=== PATIENT | female | born 1990 | race Caucasian/White ===

== ENCOUNTER 2018-10-12 19:18 | Inpatient (IN) | payer MEDICARE, OTHER ==
[2018-10-12 19:48] LABS: BASO % 1.6 % (0-2.0); EOS % 0.1 % (0-4.5); HEMATOCRIT 42.5 % (32.4-45.2); HEMOGLOBIN 14.7 GM/dl (10.7-15.3); MCH 32.1 pg (25.7-33.7); MCHC 34.7 g/dl (32.0-36.0); MEAN CELL VOLUME 92.6 fl (80-96); MEAN PLT VOLUME 8.8 fl (7.5-11.1); NEUT % 82.3 % (42.8-82.8); PLATELET COUNT 375 K/MM3 (134-434); RBC 4.59 M/mm3 (3.60-5.2); RDW 12.7 % (11.6-15.6)
[2018-10-12 19:51] LABS: HCG,QUALITATIVE URINE Negative
[2018-10-12 20:05] LABS: ALBUMIN 4.7 g/dl (3.4-5.0); BILIRUBIN,TOTAL 0.9 mg/dl (0.2-1); CALCIUM 9.5 mg/dl (8.5-10); CREATININE 0.9 mg/dl (0.55-1.3); POTASSIUM 3.7 mmol/L (3.5-5.1); TOT PROT 8.3 g/dl (6.4-8.2)
[2018-10-12] MEDS ORDERED: ONDANSETRON 4 MG/2 ML VIAL IVPB ONE (20:12)
[2018-10-12] MEDS ORDERED: SODIUM CHLORIDE 1,000 ML IV ONE ×2 (20:12→20:45)
[2018-10-12] MEDS ORDERED: ONDANSETRON 4 MG/2 ML VIAL ONE (20:17)
[2018-10-12 20:33] LABS: EPITHELIAL CELLS MODERATE /hpf
--- NOTE | 2018-10-12 20:45 | PDOC ---
Documentation entered by Laura Rosado SCRIBE, acting as scribe for Shaji Savage MD. Shaji Savage MD: This documentation has been prepared by the Alonzo fonseca Brenda, SCRIBE, under my direction and personally reviewed by me in its entirety. I confirm that the documentation accurately reflects all work , treatment, procedures, and medical decision making performed by me. History of Present Illness - General Chief Complaint: Nausea/Vomiting Stated Complaint: NAUSEA/VOMITING/ABD PAIN History Source: Patient Exam Limitations: No Limitations - History of Present Illness Initial Comments: 10/12/18 20:16 The patient is a 27 year old female, with no significant PMH who presents to the emergency department with 5 days of multiple episodes of vomiting accompanied by nausea. The patient reports having 6 episodes of vomiting today and 1 episode of diarrhea. The patient notes taking pepto bismol yesterday, but however was not able to keep it down. She also reports associated episodes of abdominal pain, described as cramping, and chills, with no signs of fever and a decreased P.O intake. The patient denies chest pain, shortness of breath, headache and dizziness. Denies constipation. Allergies: As per nursing notes Past medical history: no significant history Past surgical history: no significant history Social history: Pt lives with family and is employed. Family History: no family hx of gallstones Medications: As reviewed General: +Chills. +Decreased P.O Intake. No fevers. No weakness, no weight loss HEENT: No change in vision. No sore throat,. No ear pain CardioVascular: No chest pain or shortness of breath Respiratory:No cough, or wheezing. Gastrointestinal: +Nausea +Vomiting + Diarrhea. No constipation, No rectal bleeding Genitourinary: No dysuria, hematuria, or frequency Musculoskeletal: No joint or muscle pain or swelling Neurologic: No headache, vertigo, dizziness or loss of consciousness Psychiatric: nr depression Skin: No rashes or easy bruising Endocrine: no increased thirst or abnormal weight change Allergic: no skin or latex allergy All other systems reviewed and normal General: Well-nourished well-developed individual, no acute distress HEENT: Throat: Normal, tonsils normal, no erythema or exudate Neck: Supple, no meningeal signs, no lymphadenopathy Eyes::Pupils equal reactive and round, extraocular motion intact Chest: Nontender to palpation Cardiac: S1-S2 normal, regular rate and rhythm, no murmurs rubs or gallops Respiratory: Lungs clear to auscultation bilateral Abdomen: +mild tenderness to palpation epigastric and upper abdomen. + Slightly increased bowel sounds. Soft, nondistended. Extremities: Warm, dry, no cyanosis, clubbing, or edema Skin: No rashes Neuro: Alert and oriented x3, nonfocal exam, grossly intact, normal gait Psych: Normal mood and affect 10/12/18 20:44 Assessment and plan: This is a 27-year-old female comes in complaining of nausea vomiting and diarrhea 5 days. Patient said the vomiting and nausea are getting worse but the diarrhea is. Patient was mildly dehydrated on arrival in the ED. Patient given IV fluids. On my exam she did have some right upper quadrant tenderness and a elevated white count of 14.9. Patient has a ultrasound of her gallbladder pending 10/12/18 22:53 On reevaluation patient's workup is essentially negative other than she does have a mild white count with no left shift. Patient's treatment is however been maximized with 2 L of fluid Reglan, Pepcid, and Zofran in. Patient still remains nauseous and is intermittently vomiting and uncomfortable in spite of the morphine I have given her. Patient will be admitted overnight for further hydration and antiemetics and pain medication. Past History - Past Medical History Allergies/Adverse Reactions: Allergies Allergy/AdvReac Type Severity Reaction Status Date / Time No Known Allergies Allergy Unverified 10/12/18 19:19 Home Medications: Ambulatory Orders NK [No Known Home Medication] 10/12/18 COPD: No - Suicide/Smoking/Psychosocial Hx Smoking History: Current every day smoker Number of Cigarettes Smoked Daily: 20 Information on smoking cessation initiated: Yes *Physical Exam - Vital Signs Last Vital Signs Temp Pulse Resp BP Pulse Ox 98.5 F 102 H 16 123/69 99 10/12/18 19:20 10/12/18 19:20 10/12/18 19:20 10/12/18 19:20 10/12/18 19:20 ED Treatment Course - LABORATORY CBC & Chemistry Diagram: 10/12/18 19:35 10/12/18 19:35 - ADDITIONAL ORDERS Additional order review: Laboratory Results 10/12/18 10/12/18 19:35 19:30 Sodium 137 Potassium 3.7 Chloride 104 Carbon Dioxide 26 Anion Gap 7 L BUN 11.0 Creatinine 0.9 Est GFR (CKD-EPI)AfAm 100.85 Est GFR (CKD-EPI)NonAf 87.01 Random Glucose 130 H Calcium 9.5 Total Bilirubin 0.9 AST 41 H ALT 45 Alkaline Phosphatase 68 Total Protein 8.3 H Albumin 4.7 Urine Color Yellow Urine Appearance Slightly Urine pH >= 9.0 H Urine Protein 2+ H Urine Glucose (UA) Negative Urine Ketones 1+ H Urine Blood Negative Urine Nitrite Negative Urine Bilirubin 1+ H Urine Urobilinogen 0.2 Ur Leukocyte Esterase Negative Urine RBC 0-2 Urine WBC 0-2 Ur Transition Epith Cell Moderate Urine Bacteria Few Urine HCG, Qual Negative 10/12/18 19:35 RBC 4.59 MCV 92.6 MCHC 34.7 RDW 12.7 MPV 8.8 Neutrophils % 82.3 Lymphocytes % 13.0 Monocytes % 3.0 L Eosinophils % 0.1 Basophils % 1.6 - RADIOLOGY Radiology Studies Ordered: Category Date Time Status GALLBLADDER US [US] Stat Ultrasound 10/12/18 20:16 Ordered - Medications Given in the ED: ED Medications Discontinued Medications Generic Name Dose Route Start Last Admin Trade Name Freq PRN Reason Stop Dose Admin Ondansetron HCl 8 mg 10/12/18 20:12 10/12/18 20:20 Zofran Injection IVPB 10/12/18 20:13 8 mg ONCE ONE Administration *DC/Admit/Observation/Transfer Diagnosis at time of Disposition: Dehydration Intractable vomiting with nausea Qualifiers: Vomiting type: unspecified Qualified Code(s): R11.2 - Nausea with vomiting, unspecified - Discharge Dispostion Condition at time of disposition: Stable Decision to Admit order: Yes - Referrals - Patient Instructions - Post Discharge Activity
[2018-10-12] MEDS ORDERED: KETOROLAC TROMETHAMINE 30 MG/1 ML VIAL IVPUSH ONE (20:54)
[2018-10-12] MEDS ORDERED: morphine CARPU-JECT 2 MG/1 ML DISP.SYRIN IVPUSH ONE (20:54)
[2018-10-12] MEDS ORDERED: FAMOTIDINE 20 MG/50 ML IVPB 20 MG/50 ML MG IVPB ONE ×2 (20:54→21:47)
[2018-10-12] MEDS ORDERED: METOCLOPRAMIDE HCL INJECTION 10 MG/2 ML VIAL IVPUSH ONE (21:20)
[2018-10-12] MEDS ORDERED: DEXTROSE 5%-0.45% SALINE 1,000 ML IV SCH ×2 (21:30→23:15)
[2018-10-12] MEDS ORDERED: morphine SULFATE 4 MG/ML VIAL ONE (21:47)
[2018-10-12] MEDS ORDERED: METOCLOPRAMIDE HCL INJECTION 10 MG/2 ML VIAL ONE (21:47)
[2018-10-12] MEDS ORDERED: KETOROLAC TROMETHAMINE 30 MG/1 ML VIAL ONE (21:47)
[2018-10-12] MEDS ORDERED: HYOSCYAMINE SULFATE 0.125 MG *ODT PO ONE (22:54)
[2018-10-12] MEDS ORDERED: HYOSCYAMINE SULFATE 0.125 MG *ODT ONE (22:57)
--- NOTE | 2018-10-12 23:31 | HP ---
<Keily Romeo Magnolia - Last Filed: 10/13/18 07:42> CHIEF COMPLAINT: Abdominal Pain PCP: None HISTORY OF PRESENT ILLNESS: This is a 27 y/o young woman with no PMHx. Who presents to the ED with abdominal pain, nausea, vomiting and diarrhea. Patient having bodyaches, chills with abdominal cramping since last Friday. Patient reports starting her menses last Friday as well and attributed the abdominal cramping to that. But she reports her menses finished on Friday and she was still having the abdominal cramping, and could not tolerate anything PO. Patient admits to eating red sauce recently and noting- heartburn. She drinks 1 cup of coffee/ day. Patient denies excessive alcohol consumption but does smoke 1PPD and uses recreational Marijuana. Patient denies fever, SOB, CP, palpitations, constipation, dysuria ER course was notable for: (1) WBC 14.0 (2) Glucose 130 (3) Lipase 87 Recent Travel: None PAST MEDICAL HISTORY: None PAST SURGICAL HISTORY: Tooth Extraxtion Social History: SmokinPPD Alcohol: Social Drugs: Marijuana Family History: Non-contributory Allergies No Known Allergies Allergy (Unverified 10/12/18 19:19) HOME MEDICATIONS: Home Medications Medication Instructions Recorded NK [No Known Home Medication] 10/12/18 REVIEW OF SYSTEMS CONSTITUTIONAL: Absent: fever, chills, diaphoresis, generalized weakness, malaise, loss of appetite, weight change HEENT: Absent: rhinorrhea, nasal congestion, throat pain, throat swelling, difficulty swallowing, mouth swelling, ear pain, eye pain, visual changes CARDIOVASCULAR: Absent: chest pain, syncope, palpitations, irregular heart rate, lightheadedness , peripheral edema RESPIRATORY: Absent: cough, shortness of breath, dyspnea with exertion, orthopnea, wheezing, stridor, hemoptysis GASTROINTESTINAL: abdominal pain, nausea, vomiting, diarrhea, Absent: abdominal distension, constipation, melena, hematochezia GENITOURINARY: Absent: dysuria, frequency, urgency, hesitancy, hematuria, flank pain, genital pain MUSCULOSKELETAL: Absent: myalgia, arthralgia, joint swelling, back pain, neck pain SKIN: Absent: rash, itching, pallor HEMATOLOGIC/IMMUNOLOGIC: Absent: easy bleeding, easy bruising, lymphadenopathy, frequent infections ENDOCRINE: Absent: unexplained weight gain, unexplained weight loss, heat intolerance, cold intolerance NEUROLOGIC: Absent: headache, focal weakness or paresthesias, dizziness, unsteady gait, seizure, mental status changes, bladder or bowel incontinence PSYCHIATRIC: Absent: anxiety, depression, suicidal or homicidal ideation, hallucinations. PHYSICAL EXAMINATION Vital Signs - 24 hr 10/12/18 19:20 Temperature 98.5 F Pulse Rate 102 H Respiratory 16 Rate Blood Pressure 123/69 O2 Sat by Pulse 99 Oximetry (%) GENERAL: Awake, alert, and fully oriented, in no acute distress. HEAD: Normal with no signs of trauma. EYES: Pupils equal, round and reactive to light, extraocular movements intact, sclera anicteric, conjunctiva clear. No lid lag. EARS, NOSE, THROAT: Ears normal, nares patent, oropharynx clear without exudates. Dry mucous membranes. NECK: Normal range of motion, supple without lymphadenopathy, JVD, or masses. LUNGS: Breath sounds equal, clear to auscultation bilaterally. No wheezes, and no crackles. No accessory muscle use. HEART: Regular rate and rhythm, normal S1 and S2 without murmur, rub or gallop. ABDOMEN: Obese, soft, not distended, no guarding, no rebound, no masses. No hepatomegaly or splenomegaly. tenderness to RUQ, Epigastrium, hyperactive bowel sounds MUSCULOSKELETAL: Normal range of motion at all joints. No bony deformities or tenderness. No CVA tenderness. UPPER EXTREMITIES: 2+ pulses, warm, well-perfused. No cyanosis. No clubbing. No peripheral edema. LOWER EXTREMITIES: 2+ pulses, warm, well-perfused. No calf tenderness. No peripheral edema. NEUROLOGICAL: Cranial nerves II-XII intact. Normal speech. Normal gait. PSYCHIATRIC: Cooperative. Good eye contact. Appropriate mood and affect. SKIN: Warm, dry, normal turgor, no rashes or lesions noted, normal capillary refill. Laboratory Results - last 24 hr 10/12/18 10/12/18 10/12/18 19:30 19:35 19:35 WBC 14.0 H RBC 4.59 Hgb 14.7 Hct 42.5 MCV 92.6 MCH 32.1 MCHC 34.7 RDW 12.7 Plt Count 375 MPV 8.8 Absolute Neuts (auto) 11.6 Neutrophils % 82.3 Lymphocytes % 13.0 Monocytes % 3.0 L Eosinophils % 0.1 Basophils % 1.6 Sodium 137 Potassium 3.7 Chloride 104 Carbon Dioxide 26 Anion Gap 7 L BUN 11.0 Creatinine 0.9 Est GFR (CKD-EPI)AfAm 100.85 Est GFR (CKD-EPI)NonAf 87.01 Random Glucose 130 H Calcium 9.5 Total Bilirubin 0.9 AST 41 H ALT 45 Alkaline Phosphatase 68 Total Protein 8.3 H Albumin 4.7 Lipase Urine Color Yellow Urine Appearance Slightly Urine pH >= 9.0 H Urine Protein 2+ H Urine Glucose (UA) Negative Urine Ketones 1+ H Urine Blood Negative Urine Nitrite Negative Urine Bilirubin 1+ H Urine Urobilinogen 0.2 Ur Leukocyte Esterase Negative Urine RBC 0-2 Urine WBC 0-2 Ur Transition Epith Cell Moderate Urine Bacteria Few Urine HCG, Qual Negative 10/12/18 19:35 WBC RBC Hgb Hct MCV MCH MCHC RDW Plt Count MPV Absolute Neuts (auto) Neutrophils % Lymphocytes % Monocytes % Eosinophils % Basophils % Sodium Potassium Chloride Carbon Dioxide Anion Gap BUN Creatinine Est GFR (CKD-EPI)AfAm Est GFR (CKD-EPI)NonAf Random Glucose Calcium Total Bilirubin AST ALT Alkaline Phosphatase Total Protein Albumin Lipase 87 Urine Color Urine Appearance Urine pH Urine Protein Urine Glucose (UA) Urine Ketones Urine Blood Urine Nitrite Urine Bilirubin Urine Urobilinogen Ur Leukocyte Esterase Urine RBC Urine WBC Ur Transition Epith Cell Urine Bacteria Urine HCG, Qual ASSESSMENT/PLAN: This is a 27 y/o young woman with no PMHx. Admitted for Gastritis, Intractable Nausea and Vomiting for further evaluation of their emergent condition. Plan: See Problem List FEN D51/2NS@125ml/hr Replete lytes prn NPO, except ice chips DVT ppx Low Risk OOB Dispo: Observation Problem List - Problem (1) Gastritis Assessment/Plan: Likely infectious vs Diet vs Tobacco vs Marijuana use Continue IVF Pepcid Monitor CBC, BMP Monitor vitals Consider GI if condition worsens or f/u in outpatient Smoking Cessation Code(s): K29.70 - GASTRITIS, UNSPECIFIED, WITHOUT BLEEDING (2) Intractable vomiting with nausea Assessment/Plan: See above Code(s): R11.2 - NAUSEA WITH VOMITING, UNSPECIFIED Qualifiers: Vomiting type: unspecified Qualified Code(s): R11.2 - Nausea with vomiting , unspecified (3) Dehydration Assessment/Plan: Continue IVF Monitor BMP Code(s): E86.0 - DEHYDRATION (4) Diarrhea Assessment/Plan: Stool culture C- diff Continue IVF Monitor CBC BMP Monitor vitals Code(s): R19.7 - DIARRHEA, UNSPECIFIED (5) Cigarette nicotine dependence Assessment/Plan: Smoking cessation Code(s): F17.210 - NICOTINE DEPENDENCE, CIGARETTES, UNCOMPLICATED (6) Marijuana user Assessment/Plan: Smoking cessation Code(s): F12.90 - CANNABIS USE, UNSPECIFIED, UNCOMPLICATED Visit type - Emergency Visit Emergency Visit: Yes ED Registration Date: 10/12/18 Care time: The patient presented to the Emergency Department on the above date and was hospitalized for further evaluation of their emergent condition. - New Patient This patient is new to me today: Yes Date on this admission: 10/12/18 - Critical Care Critical Care patient: No <Cony Robin - Last Filed: 10/13/18 18:06> CHIEF COMPLAINT: PCP: HISTORY OF PRESENT ILLNESS: ER course was notable for: (1) (2) (3) Recent Travel: PAST MEDICAL HISTORY: PAST SURGICAL HISTORY: Social History: Smoking: Alcohol: Drugs: Family History: Allergies No Known Allergies Allergy (Unverified 10/12/18 19:19) HOME MEDICATIONS: Home Medications Medication Instructions Recorded NK [No Known Home Medication] 10/12/18 REVIEW OF SYSTEMS CONSTITUTIONAL: Absent: fever, chills, diaphoresis, generalized weakness, malaise, loss of appetite, weight change HEENT: Absent: rhinorrhea, nasal congestion, throat pain, throat swelling, difficulty swallowing, mouth swelling, ear pain, eye pain, visual changes CARDIOVASCULAR: Absent: chest pain, syncope, palpitations, irregular heart rate, lightheadedness , peripheral edema RESPIRATORY: Absent: cough, shortness of breath, dyspnea with exertion, orthopnea, wheezing, stridor, hemoptysis GASTROINTESTINAL: Absent: abdominal pain, abdominal distension, nausea, vomiting, diarrhea, constipation, melena, hematochezia GENITOURINARY: Absent: dysuria, frequency, urgency, hesitancy, hematuria, flank pain, genital pain MUSCULOSKELETAL: Absent: myalgia, arthralgia, joint swelling, back pain, neck pain SKIN: Absent: rash, itching, pallor HEMATOLOGIC/IMMUNOLOGIC: Absent: easy bleeding, easy bruising, lymphadenopathy, frequent infections ENDOCRINE: Absent: unexplained weight gain, unexplained weight loss, heat intolerance, cold intolerance NEUROLOGIC: Absent: headache, focal weakness or paresthesias, dizziness, unsteady gait, seizure, mental status changes, bladder or bowel incontinence PSYCHIATRIC: Absent: anxiety, depression, suicidal or homicidal ideation, hallucinations. PHYSICAL EXAMINATION Vital Signs - 24 hr 10/12/18 10/13/18 10/13/18 19:20 00:28 00:36 Temperature 98.5 F 98.6 F Pulse Rate 102 H Pulse Rate [ 65 Right] Respiratory 16 Rate Blood Pressure 123/69 Blood Pressure 112/64 [Left Arm] O2 Sat by Pulse 99 99 Oximetry (%) 10/13/18 10/13/18 10/13/18 01:32 01:54 06:00 Temperature 98.7 F 98.6 F Pulse Rate 49 L 60 Pulse Rate [ Right] Respiratory 18 18 Rate Blood Pressure 121/66 120/64 Blood Pressure [Left Arm] O2 Sat by Pulse 98 98 Oximetry (%) 10/13/18 10/13/18 10/13/18 07:05 09:00 14:23 Temperature 98.3 F Pulse Rate 54 L Pulse Rate [ Right] Respiratory 18 16 Rate Blood Pressure 126/66 Blood Pressure [Left Arm] O2 Sat by Pulse 95 95 95 Oximetry (%) GENERAL: Awake, alert, and fully oriented, in no acute distress. HEAD: Normal with no signs of trauma. EYES: Pupils equal, round and reactive to light, extraocular movements intact, sclera anicteric, conjunctiva clear. No lid lag. EARS, NOSE, THROAT: Ears normal, nares patent, oropharynx clear without exudates. Moist mucous membranes. NECK: Normal range of motion, supple without lymphadenopathy, JVD, or masses. LUNGS: Breath sounds equal, clear to auscultation bilaterally. No wheezes, and no crackles. No accessory muscle use. HEART: Regular rate and rhythm, normal S1 and S2 without murmur, rub or gallop. ABDOMEN: Soft, nontender, not distended, normoactive bowel sounds, no guarding, no rebound, no masses. No hepatomegaly or splenomegaly. MUSCULOSKELETAL: Normal range of motion at all joints. No bony deformities or tenderness. No CVA tenderness. UPPER EXTREMITIES: 2+ pulses, warm, well-perfused. No cyanosis. No clubbing. No peripheral edema. LOWER EXTREMITIES: 2+ pulses, warm, well-perfused. No calf tenderness. No peripheral edema. NEUROLOGICAL: Cranial nerves II-XII intact. Normal speech. Normal gait. PSYCHIATRIC: Cooperative. Good eye contact. Appropriate mood and affect. SKIN: Warm, dry, normal turgor, no rashes or lesions noted, normal capillary refill. Laboratory Results - last 24 hr 10/12/18 10/12/18 10/12/18 19:30 19:35 19:35 WBC 14.0 H RBC 4.59 Hgb 14.7 Hct 42.5 MCV 92.6 MCH 32.1 MCHC 34.7 RDW 12.7 Plt Count 375 MPV 8.8 Absolute Neuts (auto) 11.6 Neutrophils % 82.3 Lymphocytes % 13.0 Monocytes % 3.0 L Eosinophils % 0.1 Basophils % 1.6 Sodium 137 Potassium 3.7 Chloride 104 Carbon Dioxide 26 Anion Gap 7 L BUN 11.0 Creatinine 0.9 Est GFR (CKD-EPI)AfAm 100.85 Est GFR (CKD-EPI)NonAf 87.01 Random Glucose 130 H Calcium 9.5 Total Bilirubin 0.9 AST 41 H ALT 45 Alkaline Phosphatase 68 Total Protein 8.3 H Albumin 4.7 Total Amylase Lipase Urine Color Yellow Urine Appearance Slightly Urine pH >= 9.0 H Urine Protein 2+ H Urine Glucose (UA) Negative Urine Ketones 1+ H Urine Blood Negative Urine Nitrite Negative Urine Bilirubin 1+ H Urine Urobilinogen 0.2 Ur Leukocyte Esterase Negative Urine RBC 0-2 Urine WBC 0-2 Ur Transition Epith Cell Moderate Urine Bacteria Few Urine HCG, Qual Negative Opiates Screen Methadone Screen Barbiturate Screen Phencyclidine Screen Ur Amphetamines Screen MDMA (Ecstasy) Screen Benzodiazepines Screen Cocaine Screen U Marijuana (THC) Screen 10/12/18 10/13/18 10/13/18 19:35 00:00 07:37 WBC 12.6 H RBC 4.11 Hgb 13.1 Hct 38.2 MCV 92.9 MCH 31.9 MCHC 34.4 RDW 12.7 Plt Count 283 MPV 8.9 Absolute Neuts (auto) 9.1 Neutrophils % 71.8 Lymphocytes % 19.9 Monocytes % 7.4 Eosinophils % 0.8 Basophils % 0.1 Sodium Potassium Chloride Carbon Dioxide Anion Gap BUN Creatinine Est GFR (CKD-EPI)AfAm Est GFR (CKD-EPI)NonAf Random Glucose Calcium Total Bilirubin AST ALT Alkaline Phosphatase Total Protein Albumin Total Amylase Lipase 87 Urine Color Urine Appearance Urine pH Urine Protein Urine Glucose (UA) Urine Ketones Urine Blood Urine Nitrite Urine Bilirubin Urine Urobilinogen Ur Leukocyte Esterase Urine RBC Urine WBC Ur Transition Epith Cell Urine Bacteria Urine HCG, Qual Opiates Screen Positive A* Methadone Screen Negative Barbiturate Screen Negative Phencyclidine Screen Negative Ur Amphetamines Screen Negative MDMA (Ecstasy) Screen Negative Benzodiazepines Screen Negative Cocaine Screen Negative U Marijuana (THC) Screen Positive A* 10/13/18 07:37 WBC RBC Hgb Hct MCV MCH MCHC RDW Plt Count MPV Absolute Neuts (auto) Neutrophils % Lymphocytes % Monocytes % Eosinophils % Basophils % Sodium 138 Potassium 3.5 Chloride 107 Carbon Dioxide 26 Anion Gap 5 L BUN 9.0 Creatinine 0.8 Est GFR (CKD-EPI)AfAm 116.28 Est GFR (CKD-EPI)NonAf 100.33 Random Glucose 100 Calcium 8.5 Total Bilirubin AST ALT Alkaline Phosphatase Total Protein Albumin Total Amylase 51 Lipase Urine Color Urine Appearance Urine pH Urine Protein Urine Glucose (UA) Urine Ketones Urine Blood Urine Nitrite Urine Bilirubin Urine Urobilinogen Ur Leukocyte Esterase Urine RBC Urine WBC Ur Transition Epith Cell Urine Bacteria Urine HCG, Qual Opiates Screen Methadone Screen Barbiturate Screen Phencyclidine Screen Ur Amphetamines Screen MDMA (Ecstasy) Screen Benzodiazepines Screen Cocaine Screen U Marijuana (THC) Screen ASSESSMENT/PLAN:
[2018-10-13 01:01] LABS: COCAINE, UR NEGATIVE ng/ml (CUTOFF=300); METHADONE, UR NEGATIVE ng/ml (CUTOFF=300); PHENCYCLIDINE,URINE NEGATIVE ng/ml (CUTOFF=25); URINE AMPHETAMINES NEGATIVE ng/ml (CUTOFF=500); URINE BARBITURATES NEGATIVE ng/ml (CUTOFF=200); URINE BENZODIAZEPINES NEGATIVE ng/ml (CUTOFF=200)
[2018-10-13 01:02] LABS: OPIATES, URI POSITIVE ng/ml (CUTOFF=300)
[2018-10-13 01:48] VITALS: BMI 37.4
[2018-10-13] MEDS ORDERED: ONDANSETRON 4 MG/2 ML VIAL IVPUSH PRN (07:26)
[2018-10-13 08:22] LABS: BASO % 0.1 % (0-2.0); EOS % 0.8 % (0-4.5); HEMATOCRIT 38.2 % (32.4-45.2); HEMOGLOBIN 13.1 GM/dl (10.7-15.3); LYMPH % 19.9 % (8-40); MCH 31.9 pg (25.7-33.7); MCHC 34.4 g/dl (32.0-36.0); MEAN CELL VOLUME 92.9 fl (80-96); MEAN PLT VOLUME 8.9 fl (7.5-11.1); MONO % 7.4 % (3.8-10.2); NEUT % 71.8 % (42.8-82.8); PLATELET COUNT 283 K/MM3 (134-434); RBC 4.11 M/mm3 (3.60-5.2); RDW 12.7 % (11.6-15.6); WHITE BLOOD COUNT 12.6 K/mm3 (4.0-10.8)
[2018-10-13 08:33] LABS: CALCIUM 8.5 mg/dl (8.5-10); CREATININE 0.8 mg/dl (0.55-1.3); POTASSIUM 3.5 mmol/L (3.5-5.1)
[2018-10-13] MEDS ORDERED: FAMOTIDINE 20 MG/50 ML IVPB 20 MG/50 ML MG IVPB SCH (10:00)
[2018-10-13] MEDS: ONDANSETRON *ODT* 4 MG TABLET SL PRN ×2 (12:52→19:03)
[2018-10-13 14:24] VITALS: BP 126/66; PULSE 54; TEMP 98.3
--- NOTE | 2018-10-13 18:18 | DS ---
Physical Exam: SUBJECTIVE: Patient seen and examined. No episodes of vomiting, or diarrhea. + nausea. Abdominal pain improved. Tolerating full liquid diet. OBJECTIVE: Vital Signs Period Temp Pulse Resp BP Sys/Doherty Pulse Ox Last 24 Hr 98.3 F-98.7 F 49-102 16-18 112-126/64-69 95-99 PHYSICAL EXAM GENERAL: The patient is awake, alert, and fully oriented, in no acute distress. LUNGS: Breath sounds equal, clear to auscultation bilaterally, no wheezes, no crackles, no accessory muscle use. HEART: Regular rate and rhythm, S1, S2 without murmur, rub or gallop. ABDOMEN: Soft, nontender, nondistended EXTREMITIES: 2+ pulses, warm, well-perfused, no edema. NEUROLOGICAL: Cranial nerves II through XII grossly intact. Normal speech PSYCH: Normal mood, normal affect. SKIN: Warm, dry, normal turgor, no rashes or lesions noted. LABS Laboratory Results - last 24 hr 10/12/18 10/12/18 10/12/18 19:30 19:35 19:35 WBC 14.0 H RBC 4.59 Hgb 14.7 Hct 42.5 MCV 92.6 MCH 32.1 MCHC 34.7 RDW 12.7 Plt Count 375 MPV 8.8 Absolute Neuts (auto) 11.6 Neutrophils % 82.3 Lymphocytes % 13.0 Monocytes % 3.0 L Eosinophils % 0.1 Basophils % 1.6 Sodium 137 Potassium 3.7 Chloride 104 Carbon Dioxide 26 Anion Gap 7 L BUN 11.0 Creatinine 0.9 Est GFR (CKD-EPI)AfAm 100.85 Est GFR (CKD-EPI)NonAf 87.01 Random Glucose 130 H Calcium 9.5 Total Bilirubin 0.9 AST 41 H ALT 45 Alkaline Phosphatase 68 Total Protein 8.3 H Albumin 4.7 Total Amylase Lipase Urine Color Yellow Urine Appearance Slightly Urine pH >= 9.0 H Urine Protein 2+ H Urine Glucose (UA) Negative Urine Ketones 1+ H Urine Blood Negative Urine Nitrite Negative Urine Bilirubin 1+ H Urine Urobilinogen 0.2 Ur Leukocyte Esterase Negative Urine RBC 0-2 Urine WBC 0-2 Ur Transition Epith Cell Moderate Urine Bacteria Few Urine HCG, Qual Negative Opiates Screen Methadone Screen Barbiturate Screen Phencyclidine Screen Ur Amphetamines Screen MDMA (Ecstasy) Screen Benzodiazepines Screen Cocaine Screen U Marijuana (THC) Screen 10/12/18 10/13/18 10/13/18 19:35 00:00 07:37 WBC 12.6 H RBC 4.11 Hgb 13.1 Hct 38.2 MCV 92.9 MCH 31.9 MCHC 34.4 RDW 12.7 Plt Count 283 MPV 8.9 Absolute Neuts (auto) 9.1 Neutrophils % 71.8 Lymphocytes % 19.9 Monocytes % 7.4 Eosinophils % 0.8 Basophils % 0.1 Sodium Potassium Chloride Carbon Dioxide Anion Gap BUN Creatinine Est GFR (CKD-EPI)AfAm Est GFR (CKD-EPI)NonAf Random Glucose Calcium Total Bilirubin AST ALT Alkaline Phosphatase Total Protein Albumin Total Amylase Lipase 87 Urine Color Urine Appearance Urine pH Urine Protein Urine Glucose (UA) Urine Ketones Urine Blood Urine Nitrite Urine Bilirubin Urine Urobilinogen Ur Leukocyte Esterase Urine RBC Urine WBC Ur Transition Epith Cell Urine Bacteria Urine HCG, Qual Opiates Screen Positive A* Methadone Screen Negative Barbiturate Screen Negative Phencyclidine Screen Negative Ur Amphetamines Screen Negative MDMA (Ecstasy) Screen Negative Benzodiazepines Screen Negative Cocaine Screen Negative U Marijuana (THC) Screen Positive A* 10/13/18 07:37 WBC RBC Hgb Hct MCV MCH MCHC RDW Plt Count MPV Absolute Neuts (auto) Neutrophils % Lymphocytes % Monocytes % Eosinophils % Basophils % Sodium 138 Potassium 3.5 Chloride 107 Carbon Dioxide 26 Anion Gap 5 L BUN 9.0 Creatinine 0.8 Est GFR (CKD-EPI)AfAm 116.28 Est GFR (CKD-EPI)NonAf 100.33 Random Glucose 100 Calcium 8.5 Total Bilirubin AST ALT Alkaline Phosphatase Total Protein Albumin Total Amylase 51 Lipase Urine Color Urine Appearance Urine pH Urine Protein Urine Glucose (UA) Urine Ketones Urine Blood Urine Nitrite Urine Bilirubin Urine Urobilinogen Ur Leukocyte Esterase Urine RBC Urine WBC Ur Transition Epith Cell Urine Bacteria Urine HCG, Qual Opiates Screen Methadone Screen Barbiturate Screen Phencyclidine Screen Ur Amphetamines Screen MDMA (Ecstasy) Screen Benzodiazepines Screen Cocaine Screen U Marijuana (THC) Screen HOSPITAL COURSE: Date of Admission:10/12/18 Date of Discharge: 10/13/18 27 year-old female with no significant PMH admitted for nausea, vomiting x 5 days. Patient was afebrile, mild leukocytosis likely demarginalization from vomiting. Labs were unremarkable. Utox positive for marijuana and patient acknowledged daily marijuana use. Patient also reported a history of "acid stomach". Treated with IV fluids and protonix with resolution of symptoms. Diet was advanced and tolerated well. Patient discharged on trial of PPI with recommendation to followup with GI specialist. Minutes to complete discharge: 35 Discharge Summary Reason For Visit: DEHYDRATION, INTRACTABLE VOMITING WITH NAUSEA Current Active Problems Cigarette nicotine dependence (Acute) Dehydration (Acute) Diarrhea (Acute) Gastritis (Acute) Intractable vomiting with nausea (Acute) Marijuana user (Acute) Condition: Improved - Instructions Diet, Activity, Other Instructions: Two prescriptions have been sent to your pharmacy, one for Zofran (anti-nausea) and one for pantoprazole (anti-acid). Take these medications as directed. It is recommended you follow up with a solar system designer in 2 weeks. Contact information for Dr. Rick Lee is enclosed in this discharge packet if you choose to see him. Return to the emergency department for any new or worsening symptoms. Referrals: Rick Lee MD [Staff Physician] - Disposition: HOME - Home Medications Comprehensive Discharge Medication List: Ambulatory Orders NK [No Known Home Medication] 10/12/18 This patient is new to me today: Yes Date on this admission: 10/14/18 Emergency Visit: Yes ED Registration Date: 10/12/18 Care time: The patient presented to the Emergency Department on the above date and was hospitalized for further evaluation of their emergent condition. Critical Care patient: No - Discharge Referral Referred to [facility] No
[2018-10-14] MEDS ORDERED: PANTOPRAZOLE 40 MG TABLET (FP) PO SCH (10:00)
== END 2018-10-13 20:19 | disposition home or self-care (01) | DRG 392 ==
LOC: FER 19:18 → FM/S 22:41 → UNDOADMIN 23:55 → FM/S 23:55
PROVIDERS: ADMIT Internal Medicine; ATTEND Nurse Practitioner Acute Care
DX: K29.70 Gastritis, unspecified, without bleeding (principal); R11.2 Nausea with vomiting, unspecified; E86.0 Dehydration; R19.7 Diarrhea, unspecified; F17.210 Nicotine dependence, cigarettes, uncomplicated; F12.90 Cannabis use, unspecified, uncomplicated; R10.11 Right upper quadrant pain; D72.829 Elevated white blood cell count, unspecified
CPT/HCPCS: 36415; 74177-TC; 76705-TC; 80048; 80053; 80307; 81003; 81015; 82150; 83690; 84703; 85025; 99283-25; J7030; Q0162